=== PATIENT | male | born 1995 | race Caucasian/White ===

== ENCOUNTER 2021-11-03 09:58 | Emergency (ER) | payer OTHER ==
[~2021-11-03] VITALS: Ht 188 cm; Wt 75.7 kg
[2021-11-03] MEDS ORDERED: ACET-683 PO (10:10)
[2021-11-03] MEDS ORDERED: LIDOCAINE VISCOUS 2% SOLN 15ML UDC SSP ONE (12:20)
[2021-11-03] MEDS ORDERED: AMPICILLIN SOD/SULBACTAM SOD 3 GM in D5W MINI-BAG PLUS 100 ML IV ONE (12:20)
[2021-11-03] MEDS ORDERED: methylPREDNISolone 125MG 2ML VIAL IV ONE (12:20)
[2021-11-03] MEDS ORDERED: ISOVUE-370 76% 100ML VIAL As Ordered ONE (13:10)
[2021-11-03 13:23] LABS: ALBUMIN 4.1 GM/DL (3.2-5.2); BILIRUBIN,DIRECT 0.1 MG/DL (0.0-0.2); BILIRUBIN,TOTAL 0.4 MG/DL (0.2-1.0); C REACTIVE PROTEIN QUANTITATIV 1.9 MG/DL (0.00-0.30); TOTAL PROTEIN 7.6 GM/DL (6.4-8.2)
[2021-11-03 13:24] LABS: BASO # 0.1 10^3/uL (0.0-0.2); BASO % 0.6 % (0.0-1.0); EOS # 0.1 10^3/uL (0.0-0.5); EOS % 0.9 % (0.0-3.0); HEMATOCRIT 42.6 % (42.0-52.0); HEMOGLOBIN 14.2 g/dl (13.5-17.5); LYMPH # 1.6 10^3/uL (1.5-5.0); LYMPH % 15.9 % (24.0-44.0); MEAN CORPUSCULAR HEMOGLOBIN 30.7 pg (27.0-33.0); MEAN CORPUSCULAR HGB CONC 33.3 g/dl (32.0-36.5); MEAN CORPUSCULAR VOLUME 92.2 fl (80.0-96.0); MONO # 1.3 10^3/uL (0.0-0.8); MONO % 12.7 % (2.0-8.0); NEUTROPHILS # 6.8 10^3/uL (1.5-8.5); NEUTROPHILS % 69.4 % (36.0-66.0); PLATELET COUNT, AUTOMATED 255 10^3/uL (150-450); RED BLOOD COUNT 4.62 10^6/uL (4.30-6.10); WHITE BLOOD COUNT 9.8 10^3/uL (4.0-10.0)
[2021-11-03 13:52] LABS: ERYTHROCYTE SEDIMENTATION RATE 5 mm/hr (0-15)
[2021-11-03] MEDS ORDERED: AMOX875T2 PO (15:26)
[2021-11-03 15:46] VITALS: BP 142/76
== END 2021-11-03 15:48 | disposition home or self-care (01) ==
LOC: M ED 09:58
DX: K04.7 Periapical abscess without sinus (principal)
CPT/HCPCS: 70487; 80047; 80076; 83605; 85025; 85652; 86140; 96365; 96366; 96375; 99283; J0295; J2930; Q9967